=== PATIENT | male | born 1965 | race Caucasian/White ===

== ENCOUNTER 2019-03-02 10:28 | Outpatient (CLI) | payer OTHER ==
[2019-03-02] MEDS ORDERED: GADOBUTROL 10 MMOL/10 ML VIAL ONE (11:00)
== END 2019-03-02 23:59 | disposition home or self-care (01) ==
LOC: CFH 10:28
PROVIDERS: ATTEND Orthopaedic Surgery
DX: M25.742 Osteophyte, left hand (principal); L03.012 Cellulitis of left finger; R60.9 Edema, unspecified
CPT/HCPCS: 73220; A9585